=== PATIENT | female | born 1990 | race Hispanic/Latino ===

== ENCOUNTER 2017-08-09 09:03 | Day surgery (SDC) | payer OTHER ==
--- NOTE | 2017-08-09 09:57 | Anesthesia Consultation ---
Anesthesia Consult and Med Hx Date of service: 08/09/17 - Airway Anesthetic Teeth Evaluation: Good ROM Head & Neck: Adequate Mental/Hyoid Distance: Adequate Mallampati Class: Class I Intubation Access Assessment: Good - Pulmonary Exam CTA: Yes - Cardiac Exam Cardiac Exam: RRR - Pre-Operative Health Status ASA Pre-Surgery Classification: ASA1 Proposed Anesthetic Plan: General - Pulmonary Hx Smoking: No Hx Asthma: No Hx Respiratory Symptoms: No SOB: No COPD: No - Cardiovascular System Hx Hypertension: No Hx Angina: No - Central Nervous System Hx Neuromuscular Disorder: No Hx Seizures: No CVA: No Hx Psychiatric Problems: No - Gastrointestinal Hx Gastroesophageal Reflux Disease: No - Other Systems Hx Alcohol Use: Yes (occas) Hx Cancer: No
--- NOTE | 2017-08-09 09:57 | Anesthesia Day of Surgery ---
Anesthesia Day of Surgery - Day of Surgery Patient Examined: Yes Patient H&P Reviewed: Yes Patient is NPO: Yes
[2017-08-09] MEDS ORDERED: LACTATED RINGERS 1,000 ML IV SCH ×2 (10:00→11:00)
[2017-08-09] MEDS ORDERED: ANCEF/STERILE WATER 2 GM/20 ML 2 GM/20 ML SYRINGE IV NR (10:00)
[2017-08-09] MEDS ORDERED: ZOFRAN IV NR (10:00)
[2017-08-09] MEDS ORDERED: LACTATED RINGERS 1,000 ML ONE (10:17)
[2017-08-09] MEDS ORDERED: DILAUDID IV PRN (10:18)
[2017-08-09] MEDS ORDERED: PERCOCET 5/325 PO PRN (10:18)
[2017-08-09] MEDS ORDERED: DEMEROL IV PRN (10:18)
[2017-08-09] MEDS ORDERED: TORADOL IV PRN (10:18)
[2017-08-09] MEDS ORDERED: NARCAN 0.4 MG/1 ML IV PRN (10:18)
[2017-08-09] MEDS ORDERED: PHENERGAN PO PRN (10:18)
--- NOTE | 2017-08-09 10:21 | Short Stay Summary ---
Short Stay Documentation Date of service: 08/09/17 Narrative H&P: Pt is a 27yo WF G0 LMP 07/15/17 presents for surgical evaluation and treatment of a cervical polyp. Pelvic u/s 06/13/17 showed the uterus 8 x 4 x 3cm with a 0.7 x 0.6cm mass in the cervical canal. She is therefore scheduled for a Hysteroscopy with Polypectomy. - History Principal diagnosis: Cervical polyp H&P: obtained from office Past Medical History: No medical history Past Surgical History: tonsillectomy Social history: no significant social history, - Allergies and Medications Current Medications: Allergies No Known Allergies Allergy (Verified 08/09/17 09:46) Home Medications Medication Instructions Recorded Confirmed Last Taken Type No Known Home Medications [No 07/20/17 08/03/17 Unknown History Reported Home Medications] Active Medications Cefazolin Sodium (Ancef/Sterile Water 2 Gm/20 Ml) 2 gm in 20 mls @ 80 mls/hr IV PREOP NR; Protocol Stop: 08/09/17 21:00 Lactated Ringer's (Lactated Ringers) 1,000 mls @ 125 mls/hr IV DIRECT NAA Ondansetron HCl (Zofran) 4 mg IV PREOP NR - Physical exam General appearance: no acute distress Integumentary: no rash HEENT: Atraumatic Lungs: Clear to auscultation Breasts: deferred Heart: Regular rate Gastrointestinal: normal Female Genitourinary: deferred Rectal Exam: deferred Extremities: no ischemia, No edema Neurological: Normal gait, Normal speech - Brief post op/procedure progress note Date of procedure: 08/09/17 Pre-op diagnosis: Cervical polyp Post-op diagnosis: same Procedure: 1. Hysteroscopy 2. Cervical polypectomy Anesthesia: MAC Findings: A normal uterus with multiple cervical polyps. Normal endometrial cavity and normal tubal ostia bilaterally. Surgeon: CHAMP LUA Estimated blood loss: minimal Pathology: list (cervical oplyps) Specimen disposition: to lab Condition: stable - Hospital course Hospital course: Unremarkable - Disposition Condition at discharge: Good Disposition: DC-[id number] TO HOME OR SELFCARE - Discharge Diagnoses (1) Cervical polyp Status: Resolved Short Stay Discharge Plan Activity: no restrictions Diet: regular Follow up with: MELY DE LOS SANTOS MD [Primary Care Provider] - 7 Days CHAMP LUA MD [Staff Physician] - 14 Days Prescriptions: HYDROcodone/APAP 5-325 [[place] 5/325] 1 each PO Q6HR PRN #10 tablet PRN Reason: Pain Ibuprofen [Motrin] 600 mg PO Q8H PRN #30 tablet PRN Reason: Pain
[2017-08-09 10:23] LABS: Hematocrit 41.6 % (30.3-42.9); Hemoglobin 13.9 gm/dl (10.1-14.3)
[2017-08-09] MEDS ORDERED: SILVER NITRATE TP ONE (10:32)
[2017-08-09] MEDS ORDERED: DIPRIVAN 10 MG/ML IV ONE (11:04)
[2017-08-09] MEDS ORDERED: XYLOCAINE MPF 2% ONE (11:21)
[2017-08-09] MEDS ORDERED: DILAUDID ONE (11:21)
[2017-08-09] MEDS ORDERED: DECADRON ONE (11:25)
[2017-08-09] MEDS ORDERED: ZOFRAN ONE (11:25)
[2017-08-09] MEDS ORDERED: NACL 0.9% IR ONE (11:30)
--- NOTE | 2017-08-09 12:07 | Operative Report ---
Operative Report Operative Report: Date of procedure: 08/09/2017 Pre-operative diagnosis: Cervical polyp Post-operative diagnosis: Same Procedure name(s): 1. Hysteroscopy 2. Myosure polypectomy Surgeon: Jarrod Euceda MD Bone Grinder: None Anesthesia: Gen. mask EBL: Minimal Findings: A normal-size uterus with multiple cervical polyps. Normal endometrial cavity with normal tubal ostia bilaterally Procedure: After the patient is correctly identified, she was prepped and draped in the usual sterile fashion and placed in the dorsal lithotomy position. First the bladder was emptied using a straight catheter, next the speculum was placed in the vaginal vault and the anterior lip of the cervix was grasped using single-tooth tenaculum. The uterus was sounded to 8 cm, the cervical os was sequentially dilated and the hysteroscope was introduced into the cervical canal. Visualization of endometrial cavity found a normal endometrial cavity with multiple cervical polyps. The tubal ostia were found to be normal bilaterally. The Myosure device was then introduced into the cervical canal and several passes were made to remove all the cervical polyps. At this point the procedure was considered complete. All instruments removed from the vagina, the patient tolerated the procedure well and was transported to recovery in stable condition.
[2017-08-09 12:11] VITALS: BP 112/61
--- NOTE | 2017-08-09 12:51 | Post Anesthesia Evaluation ---
- Post Anesthesia Evaluation Patient Participated: Yes Airway Patent: Yes Stable Respiratory Function: Yes Nausea/Vomiting: No Temp > 96.8F: Yes Pain Manageable: Yes Adequeate Hydration: Yes Anesthesia Complications: No Block Receding Appropriately: Not Applicable Patient on Ventilator: No
== END 2017-08-09 13:10 | disposition home or self-care (01) ==
LOC: OR 09:03
PROVIDERS: ATTEND Obstetrics & Gynecology
DX: N84.1 Polyp of cervix uteri (principal); Z98.890 Other specified postprocedural states
CPT/HCPCS: 36415; 58558; 81025; 85014; 85018; 88305; A4217; C1782; J0690; J1100; J1170; J1885; J2405; J2704; J7120